=== PATIENT | female | born 1935 | race Caucasian/White ===

== ENCOUNTER → 2023-04-20 08:27 | Outpatient (BNVA) | payer MEDICARE, SELFPAY | PROVIDERS: PCP Student in an Organized Health Care Education/Training Program; Visit Provider Psychiatry & Neurology Neurology | DX: R41.89 Other symptoms and signs involving cognitive functions and awareness (principal); G25.81 Restless legs syndrome | CPT/HCPCS: 99202 ==

== ENCOUNTER 2023-06-15 10:16 | Outpatient (AMB) | payer MEDICARE, SELFPAY ==
--- NOTE | 2023-06-15 10:27 | MHC.OFFVIS ---
Intake Vital Signs 06/15/23 10:43 Weight 119 lb BP 110/62 Blood Pressure Location Rt brachial Position Right Lateral Pulse 90 Pulse Source Pulse Oximeter Pulse Oximetry (%) 96 Oxygen Delivery Method Room Air Intake Visit Reasons: 1m f/up Alzheimer's dementia/Neuropathy Intake Note: F/U Alzheimer Electrical Systems Designer Required: No Allergies No Known Allergies Allergy (Verified 06/15/23 10:38) HPI HPI Comments History of Present Illness Details 88 y/o female comes for evaluation of memory issues. Pt reports that is not groggy anymore, and not having swimming feeling after changing the gabapentin dosage. Pt's gabapentin tapered to 300mg q AM and 600 mg qHS. She still has some burning sensation in her legs but feels improved a little. She sleeps better, physically and cognitively active. She usually goes to [facility] couple of times a week. She lives alone, independent for ADLs. Pt takes melatonin to help her sleep as needed. [facility] Medical History (Updated 04/20/23 @ 09:11 by Daisy Montero MD) Achilles tendinitis Breast CA Cognitive change IBS (irritable bowel syndrome) Restless legs syndrome (RLS) Seasonal allergies Surgical History History of repair of hiatal hernia Hx of tonsillectomy S/P breast lumpectomy Family History Mother Diabetes Father Ulcer, stomach peptic Social History (Updated 06/15/23 @ 10:42 by Vivian Munoz [facility]) Alcohol intake: never Patient Tobacco Use Status: Never used Tobacco Review of Systems Const All systems reviewed & are unremarkable except as noted in HPI and below Physical Exam Vital Signs: Last Vital Signs Pulse 90 06/15/23 10:43 BP 110/62 06/15/23 10:43 Pulse Ox 96 06/15/23 10:43 Oxygen Delivery Method Room Air 06/15/23 10:43 Const General: cooperative, healthy appearing, comfortable and anxious Nutritional Appearance: average body habitus Orientation/consciousness: patient oriented x3 Limitations: physical limitations Eyes Pupils: Equal, round and reactive pupils present Neuro General: patient oriented x3, tone normal, moves all extremities and no focal motor deficits Cranial nerves: Yes Facial sensation intact/muscles of mastication intact, Yes Equal, round and reactive pupils present, Yes Bilaterally intact EOM present, Yes Nystagmus not present, Yes Normal facial strength present, Yes Midline tongue present, Yes Symmetric palate elevation present and Yes Ability to bilaterally elevate shoulders present Cognition (Neuro): normal cognition Gait exam (Neuro): Antalgic gait present Motor exam (neuro): 5/5 motor strength present throughout and Normal motor muscle tone present throughout Deep tendon reflexes (DTR's): Right triceps reflex intensity grade: 1+, Left triceps reflex intensity grade: 1+, Rt Biceps (C5, C6): 1+, Left biceps reflex intensity grade: 1+, Right brachioradialis reflex intensity grade: 1+, Left brachioradialis reflex intensity grade: 1+, Right patellar reflex intensity grade: 1+ and Left patellar reflex intensity grade: 1+ Coordination: [id number] test normal Psych Affect: Anxious affect present Assessment & Plan Assessment & Plan (1) Cognitive change: Comment: likely age related and due to anxiety Code(s): R41.89 - Other symptoms and signs involving cognitive functions and awareness (2) Restless legs syndrome (RLS): Code(s): G25.81 - Restless legs syndrome Plan Concerned about her gabapentin 300 mg qAM and 600 mg qHS. Continue to engage social and physical activity. She may continue to take melatonin as needed for sleep. Medications: Changed From gabapentin PO BID To gabapentin 600 mg PO BID 180 tabs 3RF 90 days Coding Level of Care Code Est Pt Level 3 (36731) Diagnoses Cognitive change R41.89 Restless legs syndrome (RLS) G25.81
[2023-06-15 10:43] VITALS: BP 110/62; PULSE 90; O2SAT 96
== END 2023-06-15 11:04 | disposition home or self-care (01) ==
PROVIDERS: PCP Student in an Organized Health Care Education/Training Program; Visit Provider Nurse Practitioner Family
DX: R41.89 Other symptoms and signs involving cognitive functions and awareness (principal); G25.81 Restless legs syndrome
CPT/HCPCS: 99213

== ENCOUNTER → 2023-06-15 10:16 | Outpatient (BNVA) | payer MEDICARE, SELFPAY | PROVIDERS: PCP Student in an Organized Health Care Education/Training Program; Visit Provider Nurse Practitioner Family | DX: R41.89 Other symptoms and signs involving cognitive functions and awareness (principal); G25.81 Restless legs syndrome; Z79.899 Other long term (current) drug therapy | CPT/HCPCS: 99212 ==

== ENCOUNTER 2023-10-23 13:51 | Outpatient (AMB) | payer MEDICARE, SELFPAY ==
--- NOTE | 2023-10-23 13:58 | A.OFFVIS_ITS ---
Intake Vital Signs 10/23/23 13:59 Height 5 ft 4.5 in Weight 183 lb 2 oz BMI 30.9 BP 128/70 Blood Pressure Location Rt brachial Position Sitting Respiration 17 Pulse 89 Pulse Source Pulse Oximeter Pulse Oximetry (%) 98 Oxygen Delivery Method Room Air Intake Visit Reasons: Mild cognitive disorder Intake Note: Pt presents to the office for a 6 month follow up for RLS and memory issues Sybase Developer Required: No Allergies No Known Allergies Allergy (Verified 10/23/23 13:59) HPI HPI Comments History of Present Illness Details 88 y/o female comes for follow up of mem ory issues and Restless legs syndrome Pt's gabapentin 300mg q AM and 600 mg qHS is helping She still has some burning sensation in her legs but feels improved a little. She sleeps better, physically and cognitively active. She usually goes to [facility] of times a week. She lives alone, independent for ADLs. Pt takes melatonin to help her sleep as needed. [facility] Medical History Cognitive change Restless legs syndrome (RLS) Seasonal allergies Breast CA IBS (irritable bowel syndrome) Achilles tendinitis Surgical History Hx of tonsillectomy History of repair of hiatal hernia S/P breast lumpectomy Family History Mother Diabetes Father Ulcer, stomach peptic Social History Alcohol intake: never Patient Tobacco Use Status: Never used Tobacco Physical Exam Vital Signs: Last Vital Signs Pulse 89 10/23/23 13:59 Resp 17 10/23/23 13:59 BP 128/70 10/23/23 13:59 Pulse Ox 98 10/23/23 13:59 Oxygen Delivery Method Room Air 10/23/23 13:59 BMI result Body Mass Index 30.9 Const General: cooperative, healthy appearing, comfortable and anxious Nutritional Appearance: average body habitus Orientation/consciousness: patient oriented x3 Limitations: physical limitations Eyes Pupils: Equal, round and reactive pupils present Neuro General: patient oriented x3, tone normal, moves all extremities and no focal motor deficits Cranial nerves: Yes Facial sensation intact/muscles of mastication intact, Yes Equal, round and reactive pupils present, Yes Bilaterally intact EOM present, Yes Nystagmus not present, Yes Normal facial strength present, Yes Midline tongue present, Yes Symmetric palate elevation present and Yes Ability to bilaterally elevate shoulders present Cognition (Neuro): normal cognition Gait exam (Neuro): Antalgic gait present Motor exam (neuro): 5/5 motor strength present throughout and Normal motor muscle tone present throughout Coordination: [id number] test normal Psych Affect: Anxious affect present Orientation What is the (year) (season) (date) (day) (month)?: year, season, date, day and month Where are we (state) (county) (town or city) (hospital) (floor)?: state, county, town or city, hospital/clinic and floor Registration Name of 3 unrelated objects clearly and slowly, then ask patient to repeat all 3 of them. (1st repeat determines score. Make sure they can repeat all three): object 1, object 2 and object 3 Attention & Calculation (CHOOSE ONE) Spell WORLD backwards (DLROW): 5 letters Recall Ask patient to repeat the 3 items from question #3.: object 1, object 2 and object 3 Language Show patient a wristwatch & ask what it is. Repeat for pencil.: watch and pencil Ask the patient to repeat the phrase 'No ifs, ands, or buts' after you.: correct Ask the patient to 'take a piece of paper with their right hand' 'fold paper in half' 'place paper on floor': take paper in right hand, fold paper in half and place paper on floor Print the sentence 'CLOSE YOUR EYES' on a piece. If patient actually closes eyes then score.: followed written direction Give patient a blank piece of paper & ask to write a sentence. Score if it contains a noun & verb.: sentence contains subject and verb Ask patient to copy figure of intersecting pentagons exactly. Score if all 10 angles & 2 intersects are included.: all 10 angles present & 2 are intersected Score Score: 30 Assessment & Plan Assessment & Plan (1) Cognitive change: Comment: likely age related and due to anxiety Code(s): R41.89 - Other symptoms and signs involving cognitive functions and awareness (2) Restless legs syndrome (RLS): Code(s): G25.81 - Restless legs syndrome (3) Mild cognitive disorder: Code(s): F09 - Unspecified mental disorder due to known physiological condition Plan Continue gabapentin 300 mg qAM and 600 mg qHS. Hearing test- audiology eval - she will talk to PCP Continue to engage social and physical activity. She may continue to take melatonin as needed for sleep. Coding Level of Care Code Est Pt Level 4 (75302) Diagnoses Cognitive change R41.89 Restless legs syndrome (RLS) G25.81 Mild cognitive disorder F09
[2023-10-23 13:59] VITALS: BP 128/70; PULSE 89; RESP 17; O2SAT 98; BMI 30.9
== END 2023-10-23 14:29 | disposition home or self-care (01) ==
PROVIDERS: PCP Student in an Organized Health Care Education/Training Program; Visit Provider Psychiatry & Neurology Neurology
DX: G25.81 Restless legs syndrome (principal); G31.84 Mild cognitive impairment of uncertain or unknown etiology; F41.9 Anxiety disorder, unspecified
CPT/HCPCS: 99214

== ENCOUNTER → 2023-10-23 13:51 | Outpatient (BNVA) | payer MEDICARE, SELFPAY | PROVIDERS: PCP Student in an Organized Health Care Education/Training Program; Visit Provider Psychiatry & Neurology Neurology | DX: F09 Unspecified mental disorder due to known physiological condition (principal); R41.89 Other symptoms and signs involving cognitive functions and awareness; G25.81 Restless legs syndrome | CPT/HCPCS: 99212 ==

== ENCOUNTER 2024-09-11 14:45 | Outpatient (AMB) | payer MEDICARE, SELFPAY ==
--- NOTE | 2024-09-11 14:48 | A.OFFVIS_ITS ---
Vital Signs 09/11/24 14:49 Height 5 ft 4 in Weight 183 lb BMI 31.4 Intake Visit Reasons: 1 yr f/u for sleep- Intake Note: Patient presents for follow up. no issues sleeping very well Allergies No Known Allergies Allergy (Verified 09/11/24 14:51) HPI Comments Details: 89 year old female presents for f/u of BH[place]AR No CPAP, Denies Snoring, talking in sleep, Sleeps at 10:30 or 11pm wakes up at 4:30am bathroom, then falls back asleep until 8am. Takes GP 300 mg for Neuropathy, numbness up legs up to the groin, sensations of heat and cold, GP 600mg at bedtime. Denies Cramps, takes magnesium daily. Memory, short term memory has changed a bit, completes ADLs, digital marketing lead checks on her weekly. Cooks for herself, meat, calcium, fruit and veggies daily. Senior citizen has lunch there daily. Works out in the yard, goes to the gym at the [employer] in [place]. Denies headaches, vision changes, no dizziness. Head feels whoozy for seconds then goes away not a headache. L. toe weaker than R. Her MME score today was 29. PFSH Medical History Cognitive change Restless legs syndrome (RLS) Seasonal allergies Breast CA IBS (irritable bowel syndrome) Achilles tendinitis Surgical History Hx of tonsillectomy History of repair of hiatal hernia S/P breast lumpectomy Family History Mother Diabetes Father Ulcer, stomach peptic Social History Alcohol intake: never Patient Tobacco Use Status: Never used Tobacco Physical Exam Vital Signs: BMI result Body Mass Index 31.4 Orientation What is the (year) (season) (date) (day) (month)?: year, season, date, day and month Where are we (state) (county) (town or city) (hospital) (floor)?: state, county, town or city, hospital/clinic and floor Registration Name of 3 unrelated objects clearly and slowly, then ask patient to repeat all 3 of them. (1st repeat determines score. Make sure they can repeat all three): object 1, object 2 and object 3 Attention & Calculation (CHOOSE ONE) Spell WORLD backwards (DLROW): 5 letters Recall Ask patient to repeat the 3 items from question #3.: object 1, object 2 and object 3 Language Show patient a wristwatch & ask what it is. Repeat for pencil.: watch and pencil Ask the patient to repeat the phrase 'No ifs, ands, or buts' after you.: incorrect Ask the patient to 'take a piece of paper with their right hand' 'fold paper in half' 'place paper on floor': take paper in right hand, fold paper in half and place paper on floor Print the sentence 'CLOSE YOUR EYES' on a piece. If patient actually closes eyes then score.: followed written direction Give patient a blank piece of paper & ask to write a sentence. Score if it contains a noun & verb.: sentence contains subject and verb Ask patient to copy figure of intersecting pentagons exactly. Score if all 10 angles & 2 intersects are included.: all 10 angles present & 2 are intersected Score Score: 29 Assessment & Plan Assessment & Plan (1) Restless legs syndrome (RLS): Code(s): G25.81 - Restless legs syndrome Category: Medical Plan: Continue on Gabapentin 300mg AM and 600mg at bedtime PO for Neuropathy. Continue to be active with the senior center and elderly services, walking and getting plenty of exercise. Follow up with clinic if you notice any memory changes or have worsened leg cramps, pains. (2) Cognitive change: Comment: likely age related and due to anxiety Code(s): R41.89 - Other symptoms and signs involving cognitive functions and awareness Category: Medical Plan: MME score today was 29, patient is active, socially engaged in [employer] and community. Medications: Refilled gabapentin 600 mg PO BID 90 days 180 tabs 3RF Coding Level of Care Code Est Pt Level 4 (99991) Complex EM visit Add On G2211 Diagnoses Restless legs syndrome (RLS) G25.81 Cognitive change R41.89
[2024-09-11 14:49] VITALS: BMI 31.4
== END 2024-09-11 15:40 | disposition home or self-care (01) ==
PROVIDERS: PCP Student in an Organized Health Care Education/Training Program; Visit Provider Physician Assistant Medical
DX: G25.81 Restless legs syndrome (principal); R41.89 Other symptoms and signs involving cognitive functions and awareness
CPT/HCPCS: 99214; G2211

== ENCOUNTER → 2024-09-11 14:45 | Outpatient (BNVA) | payer MEDICARE, SELFPAY | PROVIDERS: PCP Student in an Organized Health Care Education/Training Program; Visit Provider Psychiatry & Neurology Neurology | DX: G25.81 Restless legs syndrome (principal); R41.89 Other symptoms and signs involving cognitive functions and awareness | CPT/HCPCS: 99212 ==